=== PATIENT | female | born 1940 | race Caucasian/White ===

== ENCOUNTER 2018-09-22 07:31 | Outpatient (CLI) | payer MEDICARE ==
--- NOTE | 2018-09-22 09:20 | MRI ---
MRI LEFT KNEE WITHOUT CONTRAST: INDICATIONS: History of fall with left knee pain. COMPARISON: Prior MRI left knee with and without contrast dated 12/29/2015. FINDINGS: The low grade chondroid lesion involving the medial distal femur is stable in size, measuring 2.9 cm. 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 There is a new 8 mm intraarticular body within the suprapatellar pouch. There is post surgical change, most suspicious for a partial meniscectomy involving the posterior hor n and body of the medial meniscus. There is residual horizontally oriented high T2 signal involving the body and posterior junction of the medial meniscus, suspicious for either scar versus recurrent t ear. Some increased T2 signal is seen within the mid substance of the lateral meniscal body, which m ay reflect some intrameniscal degeneration versus scar from prior partial meniscectomy. A horizontal ly oriented signal abnormality is seen protruding from the body into the anterior horn, which may ref lect recurrent tear versus scar. There is mild osteoarthrosis of the left knee. The ACL, PCL, MCL, and LCLC are intact. The extensor mechanism is intact. IMPRESSION: 1. No acute fracture demonstrated. 2. Stable low grade chondroid lesion of the medial distal femur. 3. Mild osteoarthrosis of the left knee with an intraarticular body. 4. Findings suspicious for interval partial meniscectomy involving the medial and lateral meniscus. There is some truncation of the lower leaflet of the previously seen medial meniscal tear, involving the body and posterior horn. There is some residual horizontally oriented high T2 signal involving the body and posterior junction the medial meniscus, which may reflect residual tear versus scar. 5. Some increased T2 signal involving the substance of the lateral meniscal body may reflect scar ve rsus meniscal degeneration. There is horizontally oriented T2 signal intensity involving the anterio r body and anterior horn of the lateral meniscus, which may reflect recurrent tear versus scar. 6. Moderate sized Kinney's cyst. POS: [facility]
== END 2018-09-22 07:32 | disposition home or self-care (01) ==
LOC: TBSIIMAG 07:31
PROVIDERS: ATTEND Orthopaedic Surgery
DX: M25.562 Pain in left knee (principal); M23.92 Unspecified internal derangement of left knee; M25.862 Other specified joint disorders, left knee; M17.12 Unilateral primary osteoarthritis, left knee; M71.22 Synovial cyst of popliteal space [Baker], left knee

== ENCOUNTER 2018-10-13 00:37 | Outpatient (CLI) | payer MEDICARE ==
[2018-10-13 12:42] LABS: Anion Gap 12 mmol/L (10-20); BUN (Urea Nitrogen) 18 mg/dL (9.8-20.1); Calc. Creatinine Clearance 0 mL/min (70-130); Calcium 9.8 mg/dL (7.8-10.44); Carbon Dioxide 28 mmol/L (23-31); Chloride 104 mmol/L (98-107); Estimated GFR-MDRD 59; Glucose 88 mg/dL (83-110); Potassium 3.8 mmol/L (3.5-5.1); Sodium 140 mmol/L (136-145)
[2018-10-13 12:43] LABS: #Basophils 0.1 thou/uL (0.0-0.2); #Eosinphils 0.3 thou/uL (0.0-0.7); #Lymphocytes 1.9 thou/uL (1.20-3.40); #Monocytes 0.6 thou/uL (0.11-0.59); %Basophils 0.8 % (0.0-1.0); %Eosinophils 3.9 % (0.0-10.0); %Lymphocytes 27.5 % (21.0-51.0); %Monocytes 9.4 % (0.0-10.0); %Neutrophils 58.5 % (42.0-75.0); Hemoglobin 15.1 g/dL (12.0-16.0); Mean Corpuscular HGB CONC 33.6 g/dL (32.0-36.0); Mean Corpuscular Hemoglobin 29.9 pg (27.0-31.0); Mean Platelet Volume 8.3 fL (7.4-10.4); Platelet Count 222 thou/uL (130-400); RBC Distribution Width 12.4 % (11.5-14.5); Red Blood Cell (RBC) Count 5.06 mill/uL (4.20-5.40); White Blood Cell (WBC) Count 6.8 thou/uL (4.8-10.8)
--- NOTE | 2018-10-14 09:35 | EKG ---
Test Reason : Blood Pressure : / mmHG Vent. Rate : 064 BPM Atrial Rate : 064 BPM P-R Int : 160 ms QRS Dur : 086 ms QT Int : 436 ms P-R-T Axes : 069 065 064 degrees QTc Int : 449 ms Normal sinus rhythm Normal ECG When compared with ECG of 23-DEC-2016 13:04, Nonspecific T wave abnormality no longer evident in Inferior leads Confirmed by DR. Jay CARSON ([id number]) on 10/14/2018 9:34:23 AM Referred By: BONITA Confirmed By:DR. Jay CARSON
== END 2018-10-13 00:38 | disposition home or self-care (01) ==
LOC: LABBT 00:37
PROVIDERS: ATTEND Orthopaedic Surgery
DX: Z01.818 Encounter for other preprocedural examination (principal); M23.42 Loose body in knee, left knee
CPT/HCPCS: 80048; 85025; 93005; 93010

== ENCOUNTER 2018-10-15 05:58 | Day surgery (SDC) | payer MEDICARE ==
[2018-10-13 11:33] VITALS: BMI 27.0
[2018-10-15] MEDS ORDERED: PROPOFOL 20 ML ONE (06:48)
[2018-10-15] MEDS ORDERED: Ondansetron PF 4 MG/2 ML Vial ONE (10:07)
[2018-10-15] MEDS ORDERED: PROPOFOL 200 MG/20 ML VIAL ONE (10:07)
[2018-10-15] MEDS ORDERED: Dexamethasone 20 MG/5 ML VIAL ONE (10:07)
--- NOTE | 2018-10-15 10:34 | OP ---
DATE OF PROCEDURE: 10/15/2018 PREOPERATIVE DIAGNOSES: 1. Left knee medial and lateral meniscus tears. 2. Left knee loose bodies. POSTOPERATIVE DIAGNOSES: 1. Left knee medial and lateral meniscus tears. 2. Large cartilaginous loose bodies x2, both of these being greater than 1 cm. [employer]ANG[employer]SEM[employer]ER: None. BLOOD LOSS: Minimal. COMPLICATIONS: None. ANESTHESIA: The patient did have a general anesthetic as well as a local knee block. DISPOSITION: She went to recovery room in stable condition. INDICATIONS: This is a very active 78-year-old female, who despite nonoperative treatment, continues to have significant symptoms including pain, swelling, and catching. At this time, she opted to have surgery. DESCRIPTION OF PROCEDURE: After all verbal consent forms were explained and signed, she was taken to the operative room and at this time was given general anesthetic. Once the level of anesthesia was appropriate, tourniquet was placed on the left thigh and leg was placed in arthroscopic leg marie. It was then prepped and draped in standard surgical fashion. The limb was then exsanguinated and tourniquet was taken to 300 mmHg. Inferolateral portal was established. Scope was placed into the knee joint. Needle localization technique was then used to make a medial working portal. Diagnostic arthroscopy commenced in the notch. The ACL and PCL were found to be intact. There was a piece of the anterior horn of lateral meniscus, flopped into the notch. This was removed with a shaver. The medial compartment was evaluated. There was a tear in the posterior horn of the medial meniscus. There was some mild chondromalacic changes, nothing significant. A partial meniscectomy was performed using meniscal biter and shaver. Lateral compartment was entered. Again, there was some meniscal tears noted to the anterior horn and body of the lateral meniscus. A shaver was introduced into the compartment to start removing the small pieces of the meniscus that were bitten off with a biter. A large cartilaginous loose body was encountered underneath the meniscus. This was removed with the grasper. Again, this was grade 1 cm. We then swept through the lateral compartment some more once it was cleaned out. There was also noted an area of appearance in the central aspect of the lateral tibial plateau. The gutters were swept through. There was some synovitis in the lateral gutter. There was encountered another loose body greater than a centimeter. Again, the grasper was used to remove this. The patellofemoral joint overall was in good condition as far as the patella and the trochlea were concerned. Again, we went through the knee one more time looking for any remaining loose bodies. There were none, so the scope was removed. Knee was drained. Portals were closed with simple nylon stitch. Bulky sterile dressing was applied. Tourniquet was let down. Toes pinked up nicely. The patient was awakened, taken to recovery room in stable condition. All counts were correct at the end of the case and she did receive preoperative IV antibiotics. Job ID: [id number]
[2018-10-15] MEDS ORDERED: Bupivacaine HCl 0.5%/Epinephrine 1:200,000/PF 30 ml Vial ONE (10:55)
[2018-10-15] MEDS ORDERED: Lidocaine 2% w/Epinephrine 1:200K 20 ML VIAL ONE (10:55)
== END 2018-10-15 11:15 | disposition home or self-care (01) ==
LOC: SDC 05:58
PROVIDERS: ATTEND Orthopaedic Surgery
PROC: 0SBD4ZZ Excision of Left Knee Joint, Percutaneous Endoscopic Approach (ICD-10-PCS; principal; 2018-10-15)
PROC: 0SBD4ZZ Excision of Left Knee Joint, Percutaneous Endoscopic Approach (ICD-10-PCS; 2018-10-15)
PROC: 0SCD4ZZ Extirpation of Matter from Left Knee Joint, Percutaneous Endoscopic Approach (ICD-10-PCS; 2018-10-15)
DX: S83.242A Other tear of medial meniscus, current injury, left knee, initial encounter (principal); S83.282A Other tear of lateral meniscus, current injury, left knee, initial encounter; M17.12 Unilateral primary osteoarthritis, left knee; E78.5 Hyperlipidemia, unspecified; I10 Essential (primary) hypertension; K21.9 Gastro-esophageal reflux disease without esophagitis; Z79.82 Long term (current) use of aspirin; Z79.899 Other long term (current) drug therapy; Z88.0 Allergy status to penicillin
CPT/HCPCS: J0670; J1100; J2405; J2704

== ENCOUNTER 2022-11-16 17:02 | Inpatient (IN) | payer MEDICARE ==
[~2022-11-16 17:02] MED LIST: Iopamidol-370 76% 500 ML MDV (1 ML CHARGE) ONE
[2022-11-16] MEDS ORDERED: Ondansetron PF 4 MG/2 ML Vial ONE (17:03)
[2022-11-16] MEDS ORDERED: fentaNYL 50 mcg/mL 1 mL Vial ONE ×2 (17:04→19:01)
[2022-11-16] MEDS ORDERED: niCARdipine 25 MG/10 ML SDV ONE (17:05)
[2022-11-16] MEDS ORDERED: Rocuronium Bromide 10 MG/ML (10ML VIAL) ONE ×2 (17:05→20:30)
[2022-11-16] MEDS ORDERED: Labetalol HCl 100 MG/20 ML VIAL ONE (17:12)
[2022-11-16 17:24] LABS: #Basophils 0.1 thou/uL (0.0-0.2); #Eosinphils 0.4 thou/uL (0.0-0.7); #Lymphocytes 3.2 thou/uL (1.20-3.40); #Monocytes 0.9 thou/uL (0.11-0.59); #Neutrophils 4.4 thou/uL (1.40-6.50); %Basophils 0.6 % (0.0-1.0); %Eosinophils 4.8 % (0.0-10.0); %Lymphocytes 35.7 % (21.0-51.0); %Monocytes 10.1 % (0.0-10.0); %Neutrophils 48.8 % (42.0-75.0); Hemoglobin 14.5 g/dL (12.0-16.0); Mean Corpuscular HGB CONC 34.5 g/dL (32.0-36.0); Mean Corpuscular Hemoglobin 31.6 pg (27.0-31.0); Mean Corpuscular Volume 91.7 fl (78.0-98.0); Platelet Count 197 10x3/uL (130-400); RBC Distribution Width 12.7 % (11.5-14.5); Red Blood Cell (RBC) Count 4.58 mill/uL (4.20-5.40)
[2022-11-16 17:34] LABS: INR-International Normal Ratio 0.9; PTT 23.8 sec (22.9-36.1)
[2022-11-16 17:47] LABS: ALT (SGPT) 27 U/L (8-55); AST (SGOT) 38 U/L (5-34); Albumin 4.1 g/dL (3.4-4.8); Alkaline Phosphatase 30 U/L (40-110); Anion Gap 17 mmol/L (10-20); BUN (Urea Nitrogen) 25 mg/dL (9.8-20.1); Bilirubin, Total 0.3 mg/dL (0.2-1.2); Calc. Creatinine Clearance 0 mL/min (70-130); Carbon Dioxide 22 mmol/L (23-31); Chloride 104 mmol/L (98-107); Estimated GFR 50; Globulin 2.8 g/dL (2.4-3.5); Glucose 146 mg/dL (83-110); Potassium 3.6 mmol/L (3.5-5.1); Protein, Total 6.9 g/dL (5.8-8.1); Sodium 139 mmol/L (136-145)
[2022-11-16 17:54] LABS: Actual Bicarbonate (HCO3a) 25.7 mEq/L (22-28); Analyzer IN Cardio ER; Base Excess (BEa) 2.1 mEq/L (-2.0 to +3.0); CO2 Tension 37.2 mmHg (35.0-45.0); Calcium, Ionized (arterial) 1.19 mmol/L (1.12-1.30); Carboxyhemoglobin (COHb) 0.2 gm% (0.0-3.0); Hematocrit-ABG 43 % (36.0-47.0); Hemoglobin (Hb) 14.5 g/dL (12.0-16.0); O2 Tension (PaO2), arterial 478.9 mmHg (> 60.0); Potassium - ABG Lab 3.29 mmol/L (3.70-5.30); pH, Arterial 7.458 (7.35-7.45)
[2022-11-16 17:55] LABS: Puncture Site RRA
[2022-11-16] MEDS ORDERED: levETIRAcetam in NS 1,000 MG in Premix Bag 1 BAG IVPB ONE (18:03)
[2022-11-16] MEDS ORDERED: levETIRAcetam 500 MG/5 ML VIAL SLOW IVP SCH (18:15)
[2022-11-16 18:16] LABS: Bilirubin Negative (Negative); Blood, Urine Negative (Negative); Clarity Clear (Clear); Glucose, Urine (Dipstick) Normal (Negative); Ketone, Urine Negative (Negative); Leukocyte Negative Leu/uL (Negative); Nitrite Negative (Negative); Protein, Urine (Dipstick) Negative (Neg-Trace); Specific Gravity, Urine 1.019 (1.002-1.036); Urobilinogen Normal mg/dL (Less than 2); pH, Urine 6.5 (5.0-9.0)
[2022-11-16] MEDS ORDERED: Mag-Al 1200 mg/1200 mg/30 ML UDCUP PO PRN (18:24)
[2022-11-16] MEDS ORDERED: Ondansetron PF 4 MG/2 ML Vial IVP PRN (18:24)
[2022-11-16] MEDS ORDERED: Ventilator Sedation Protocol 1 EACH FS SCH (19:51)
[2022-11-16] MEDS ORDERED: Neomycin-Polymyxin 1 ML AMP ONE ×2 (19:53→21:43)
[2022-11-16] MEDS ORDERED: Thrombin 5000 UNITS/5 ML VIAL ONE (19:53)
[2022-11-16] MEDS ORDERED: EPINEPHrine 1 MG/ML AMP ONE (19:56)
[2022-11-16] MEDS ORDERED: Lidocaine 1% (PF) 30 ML VIAL ONE (19:56)
[2022-11-16] MEDS ORDERED: Fentanyl CADD 100 ML IV SCH (20:00)
[2022-11-16] MEDS ORDERED: Lorazepam 2 MG/ML VIAL SLOW IVP PRN (20:00)
[2022-11-16] MEDS ORDERED: DISCONTINUE PREVIOUS NARCOTIC PAIN MEDICATIONS AND BENZODIAZEPINES FS SCH (20:00)
[2022-11-16] MEDS ORDERED: Fentanyl BOLUS 250 ML IVPB PRN (20:00)
[2022-11-16] MEDS ORDERED: Propofol BOLUS 1,000 MG/100 ML VIAL IV PRN (20:00)
[2022-11-16] MEDS ORDERED: Midazolam HCl 2 mg/2 ml Vial ONE (20:10)
[2022-11-16] MEDS ORDERED: fentaNYL PF 100 MCG/2 ML SYRINGE ONE (20:10)
[2022-11-16] MEDS ORDERED: Clindamycin/D5W 900 MG in Premix Bag 1 BAG IVPB SCH ×2 (20:15→22:00)
[2022-11-16] MEDS ORDERED: Phenylephrine 10 MG/ML VIAL ONE (20:30)
[2022-11-16] MEDS ORDERED: PROPOFOL 200 MG/20 ML VIAL ONE (20:30)
[2022-11-16] MEDS ORDERED: ePHEDrine Sulfate 50 MG/10 ML VIAL ONE (20:30)
[2022-11-16] MEDS ORDERED: Famotidine/PF 20 mg/2ml Vial SLOW IVP SCH (21:00)
[2022-11-16] MEDS ORDERED: levETIRAcetam in NS 500 MG in Premix Bag 1 BAG IVPB SCH (21:00)
[2022-11-16 23:22] LABS: Actual Bicarbonate (HCO3a) 22.2 mEq/L (22-28); Base Excess (BEa) 1.1 mEq/L (-2.0 to +3.0); Calcium, Ionized (arterial) 1.06 mmol/L (1.12-1.30); Carboxyhemoglobin (COHb) 0.3 gm% (0.0-3.0); Hematocrit-ABG 39 % (36.0-47.0); Hemoglobin (Hb) 13.3 g/dL (12.0-16.0); O2 Tension (PaO2), arterial 101.6 mmHg (> 60.0); Potassium - ABG Lab 3.51 mmol/L (3.70-5.30); pH, Arterial 7.549 (7.35-7.45)
[2022-11-16 23:23] LABS: Puncture Site ART LINE
[2022-11-16] MEDS ORDERED: Electrolyte Replacement Protocol 1 EACH FS SCH (23:45)
[2022-11-16] MEDS ORDERED: Ipratropium/Albuterol 3 ML NEB NEB PRN (23:46)
[2022-11-16 23:54] LABS: Troponin I 0.063 ng/mL (< 0.028)
[2022-11-16] MEDS: Sodium Chloride 0.9% 1,000 ML IV SCH (23:57)
[2022-11-17] MEDS: levETIRAcetam 500 MG/5 ML VIAL SLOW IVP SCH ×3 (00:20→20:22)
[2022-11-17] MEDS ORDERED: Fentanyl CADD 100 ML ONE (01:29)
[2022-11-17 02:04] LABS: Troponin I 0.054 ng/mL (< 0.028)
[2022-11-17] MEDS: niCARdipine 25 MG in Sodium Chloride 0.9% 250 ML 250 ML IVPB SCH ×5 (02:08→11:47)
[2022-11-17 04:20] LABS: #Lymphocytes 1.3 thou/uL (1.20-3.40); #Monocytes 1.1 thou/uL (0.11-0.59); #Neutrophils 12.3 thou/uL (1.40-6.50); %Basophils 0.2 % (0.0-1.0); %Eosinophils 0.2 % (0.0-10.0); %Lymphocytes 8.8 % (21.0-51.0); %Monocytes 7.2 % (0.0-10.0); %Neutrophils 83.6 % (42.0-75.0); Hemoglobin 12.6 g/dL (12.0-16.0); Mean Corpuscular Hemoglobin 31.7 pg (27.0-31.0); Mean Corpuscular Volume 90.6 fl (78.0-98.0); Mean Platelet Volume 7.8 fL (7.4-10.4); Platelet Count 189 10x3/uL (130-400); RBC Distribution Width 12.6 % (11.5-14.5); Red Blood Cell (RBC) Count 3.96 mill/uL (4.20-5.40); White Blood Cell (WBC) Count 14.7 10x3/uL (4.8-10.8)
[2022-11-17 04:44] LABS: ALT (SGPT) 25 U/L (8-55); AST (SGOT) 32 U/L (5-34); Albumin 3.5 g/dL (3.4-4.8); Alkaline Phosphatase 25 U/L (40-110); Anion Gap 13 mmol/L (10-20); BUN (Urea Nitrogen) 16 mg/dL (9.8-20.1); Bilirubin, Total 0.5 mg/dL (0.2-1.2); Calc. Creatinine Clearance 56 mL/min (70-130); Calcium 8.6 mg/dL (7.8-10.44); Carbon Dioxide 20 mmol/L (23-31); Cardiac Risk 4.7 (Less than 4.5); Chloride 110 mmol/L (98-107); Cholesterol 169 mg/dl (< 200 Desired); Estimated GFR 66; Globulin 2.2 g/dL (2.4-3.5); Glucose 157 mg/dL (83-110); HDL Cholesterol 36 mg/dL (>60 Neg Risk); LDL Cholesterol, Calculated 109 mg/dL; Potassium 3.6 mmol/L (3.5-5.1); Protein, Total 5.7 g/dL (5.8-8.1); Sodium 139 mmol/L (136-145); Triglycerides 118 mg/dL (Less than 150)
[2022-11-17] MEDS: CEFAZOLIN 2 GM in Sodium Chloride 0.9% 100 ML IVPB SCH ×2 (04:51→14:01)
[2022-11-17 08:00] LABS: Actual Bicarbonate (HCO3a) 21.2 mEq/L (22-28); Base Excess (BEa) -1.2 mEq/L (-2.0 to +3.0); Calcium, Ionized (arterial) 1.07 mmol/L (1.12-1.30); Carboxyhemoglobin (COHb) 0.4 gm% (0.0-3.0); Hematocrit-ABG 38 % (36.0-47.0); Hemoglobin (Hb) 12.9 g/dL (12.0-16.0); Potassium - ABG Lab 3.54 mmol/L (3.70-5.30); pH, Arterial 7.481 (7.35-7.45)
[2022-11-17 08:02] LABS: Puncture Site Arterial Line
[2022-11-17] MEDS: Famotidine/PF 20 mg/2ml Vial SLOW IVP SCH (09:30)
[2022-11-17] MEDS: Propofol 1,000 MG/100 ML VIAL IV PRN (11:47)
[2022-11-17] MEDS ORDERED: niCARdipine 40MG In NaCl 40 MG/200 ML BAG IVPB SCH (13:30)
[2022-11-17] MEDS: niCARdipine 50 MG in Sodium Chloride 0.9% 250 ML 230 ML IV SCH ×2 (13:55→21:08)
[2022-11-17] MEDS: Sodium Chloride 0.9% 1,000 ML IV SCH (19:57)
[2022-11-18] MEDS: niCARdipine 50 MG in Sodium Chloride 0.9% 250 ML 230 ML IV SCH ×3 (01:12→14:15)
[2022-11-18 04:34] LABS: #Eosinphils 0.1 thou/uL (0.0-0.7); #Lymphocytes 1.6 thou/uL (1.20-3.40); #Monocytes 1.5 thou/uL (0.11-0.59); #Neutrophils 9.9 thou/uL (1.40-6.50); %Basophils 0.3 % (0.0-1.0); %Eosinophils 0.6 % (0.0-10.0); %Lymphocytes 12.4 % (21.0-51.0); %Monocytes 11.3 % (0.0-10.0); %Neutrophils 75.4 % (42.0-75.0); Hemoglobin 11.6 g/dL (12.0-16.0); Mean Corpuscular HGB CONC 34.8 g/dL (32.0-36.0); Mean Corpuscular Hemoglobin 31.2 pg (27.0-31.0); Mean Corpuscular Volume 89.7 fl (78.0-98.0); Mean Platelet Volume 7.9 fL (7.4-10.4); Platelet Count 169 10x3/uL (130-400); RBC Distribution Width 12.9 % (11.5-14.5); Red Blood Cell (RBC) Count 3.71 mill/uL (4.20-5.40); White Blood Cell (WBC) Count 13.2 10x3/uL (4.8-10.8)
[2022-11-18 04:55] LABS: Anion Gap 10 mmol/L (10-20); BUN (Urea Nitrogen) 12 mg/dL (9.8-20.1); Calc. Creatinine Clearance 64 mL/min (70-130); Calcium 8.1 mg/dL (7.8-10.44); Carbon Dioxide 19 mmol/L (23-31); Chloride 116 mmol/L (98-107); Estimated GFR 78; Glucose 141 mg/dL (83-110); Potassium 3.3 mmol/L (3.5-5.1); Sodium 142 mmol/L (136-145)
[2022-11-18] MEDS: Potassium Chloride 20 MEQ in Premix Bag 1 BAG IVPB SCH ×2 (07:40→09:35)
[2022-11-18] MEDS: levETIRAcetam 500 MG/5 ML VIAL SLOW IVP SCH ×2 (08:10→20:32)
[2022-11-18] MEDS: Famotidine/PF 20 mg/2ml Vial SLOW IVP SCH (08:10)
[2022-11-18] MEDS: Sodium Chloride 0.9% 1,000 ML IV SCH ×2 (08:12→20:32)
[2022-11-18] MEDS ORDERED: Furosemide 40 MG/4 ML VIAL SLOW IVP SCH (11:15)
[2022-11-18] MEDS: Propofol 1,000 MG/100 ML VIAL IV PRN (11:17)
[2022-11-19] MEDS: niCARdipine 50 MG in Sodium Chloride 0.9% 250 ML 230 ML IV SCH ×5 (00:56→20:58)
[2022-11-19 04:22] LABS: #Eosinphils 0.1 thou/uL (0.0-0.7); #Lymphocytes 1.4 thou/uL (1.20-3.40); #Monocytes 1.4 thou/uL (0.11-0.59); #Neutrophils 11.7 thou/uL (1.40-6.50); %Basophils 0.2 % (0.0-1.0); %Eosinophils 0.6 % (0.0-10.0); %Lymphocytes 9.8 % (21.0-51.0); %Monocytes 9.6 % (0.0-10.0); %Neutrophils 79.8 % (42.0-75.0); Hemoglobin 11.5 g/dL (12.0-16.0); Mean Corpuscular Volume 91.2 fl (78.0-98.0); Mean Platelet Volume 8.5 fL (7.4-10.4); Platelet Count 171 10x3/uL (130-400); RBC Distribution Width 12.9 % (11.5-14.5); Red Blood Cell (RBC) Count 3.72 mill/uL (4.20-5.40); White Blood Cell (WBC) Count 14.6 10x3/uL (4.8-10.8)
[2022-11-19 04:39] LABS: Anion Gap 12 mmol/L (10-20); BUN (Urea Nitrogen) 13 mg/dL (9.8-20.1); Calc. Creatinine Clearance 66 mL/min (70-130); Calcium 8.7 mg/dL (7.8-10.44); Carbon Dioxide 20 mmol/L (23-31); Chloride 117 mmol/L (98-107); Estimated GFR 79; Glucose 134 mg/dL (83-110); Potassium 3.6 mmol/L (3.5-5.1); Sodium 145 mmol/L (136-145)
[2022-11-19] MEDS: levETIRAcetam 500 MG/5 ML VIAL SLOW IVP SCH ×2 (08:38→21:04)
[2022-11-19] MEDS: Famotidine/PF 20 mg/2ml Vial SLOW IVP SCH ×2 (08:38→21:05)
[2022-11-19] MEDS ORDERED: Furosemide 40 MG/4 ML VIAL SLOW IVP SCH (09:00)
[2022-11-19 11:26] LABS: Bilirubin Negative (Negative); Blood, Urine Trace (Negative); CAUTI Indications for Culture Alt mental st,lethar; Clarity Clear (Clear); Glucose, Urine (Dipstick) Normal (Negative); Ketone, Urine 10 mg/dL (Negative); Leukocyte 25 Leu/uL (Negative); Nitrite Negative (Negative); Protein, Urine (Dipstick) 20 mg/dL (Neg-Trace); Specific Gravity, Urine 1.018 (1.002-1.036); Squamous Epithelial 0-3 HPF (0-3); Urobilinogen Normal mg/dL (Less than 2)
[2022-11-19 11:27] LABS: Bacteria/HPF 1+ HPF (None Seen)
[2022-11-19 11:28] LABS: Urine Culture Reflex No No
[2022-11-19] MEDS: Sodium Chloride 0.9% 1,000 ML IV SCH (12:06)
[2022-11-19] MEDS: hydrALAZINE 20 MG/ML VIAL SLOW IVP PRN (14:06)
[2022-11-20] MEDS: Sodium Chloride 0.9% 1,000 ML IV SCH ×2 (00:24→08:33)
[2022-11-20] MEDS: niCARdipine 50 MG in Sodium Chloride 0.9% 250 ML 230 ML IV SCH ×6 (00:33→21:21)
[2022-11-20] MEDS: levETIRAcetam 500 MG/5 ML VIAL SLOW IVP SCH ×2 (08:32→21:05)
[2022-11-20] MEDS: Famotidine/PF 20 mg/2ml Vial SLOW IVP SCH ×2 (08:33→21:55)
[2022-11-20] MEDS ORDERED: Amlodipine 5 MG TAB PO SCH (15:15)
[2022-11-20] MEDS: Morphine 2 MG/ML VIAL SLOW IVP PRN ×3 (15:26→23:38)
[2022-11-20] MEDS: Acetaminophen 650 MG/20.3 ML UDCUP PO PRN (17:49)
[2022-11-20] MEDS: cefTRIAXone\\ROCEPHIN 2 GM in Sodium Chloride 0.9% 100 ML IVPB SCH (20:55)
[2022-11-20] MEDS ORDERED: Famotidine 20 MG TAB PER TUBE SCH (21:00)
[2022-11-20] MEDS: hydrALAZINE 20 MG/ML VIAL SLOW IVP PRN ×3 (21:05→23:39)
[2022-11-21] MEDS: niCARdipine 50 MG in Sodium Chloride 0.9% 250 ML 230 ML IV SCH ×5 (00:30→18:15)
[2022-11-21] MEDS: Acetaminophen 650 MG/20.3 ML UDCUP PO PRN (00:34)
[2022-11-21] MEDS: Morphine 2 MG/ML VIAL SLOW IVP PRN ×5 (01:50→22:23)
[2022-11-21] MEDS: Sodium Chloride 0.9% 1,000 ML IV SCH ×2 (04:20→15:03)
[2022-11-21] MEDS: hydrALAZINE 20 MG/ML VIAL SLOW IVP PRN ×2 (04:44→08:01)
[2022-11-21 05:08] LABS: #Eosinphils 0.2 thou/uL (0.0-0.7); #Lymphocytes 1.2 thou/uL (1.20-3.40); #Monocytes 1.4 thou/uL (0.11-0.59); #Neutrophils 9.7 thou/uL (1.40-6.50); %Basophils 0.3 % (0.0-1.0); %Eosinophils 1.5 % (0.0-10.0); %Lymphocytes 9.3 % (21.0-51.0); %Monocytes 11.4 % (0.0-10.0); %Neutrophils 77.5 % (42.0-75.0); Hemoglobin 10.4 g/dL (12.0-16.0); Mean Corpuscular HGB CONC 35.2 g/dL (32.0-36.0); Mean Corpuscular Hemoglobin 31.6 pg (27.0-31.0); Mean Corpuscular Volume 89.9 fl (78.0-98.0); Mean Platelet Volume 7.9 fL (7.4-10.4); Platelet Count 191 10x3/uL (130-400); RBC Distribution Width 12.6 % (11.5-14.5); White Blood Cell (WBC) Count 12.5 10x3/uL (4.8-10.8)
[2022-11-21] MEDS: Famotidine/PF 20 mg/2ml Vial SLOW IVP SCH ×2 (08:17→22:14)
[2022-11-21] MEDS: levETIRAcetam 500 MG/5 ML VIAL SLOW IVP SCH ×2 (08:18→22:13)
[2022-11-21] MEDS ORDERED: Amlodipine 5 MG TAB PO SCH ×2 (09:00→12:30)
[2022-11-21] MEDS ORDERED: Furosemide 40 MG/4 ML VIAL SLOW IVP SCH (14:15)
[2022-11-21] MEDS: cefTRIAXone\\ROCEPHIN 2 GM in Sodium Chloride 0.9% 100 ML IVPB SCH (22:13)
[2022-11-22] MEDS: Morphine 2 MG/ML VIAL SLOW IVP PRN (04:31)
[2022-11-22] MEDS: hydrALAZINE 20 MG/ML VIAL SLOW IVP PRN ×4 (04:32→21:36)
[2022-11-22 05:03] LABS: #Eosinphils 0.2 thou/uL (0.0-0.7); #Lymphocytes 1.4 thou/uL (1.20-3.40); #Monocytes 0.9 thou/uL (0.11-0.59); #Neutrophils 7.5 thou/uL (1.40-6.50); %Basophils 0.3 % (0.0-1.0); %Eosinophils 2.3 % (0.0-10.0); %Lymphocytes 13.8 % (21.0-51.0); %Monocytes 9.3 % (0.0-10.0); %Neutrophils 74.3 % (42.0-75.0); Hemoglobin 9.8 g/dL (12.0-16.0); Mean Corpuscular HGB CONC 33.9 g/dL (32.0-36.0); Mean Corpuscular Volume 91.5 fl (78.0-98.0); Mean Platelet Volume 8.7 fL (7.4-10.4); Platelet Count 196 10x3/uL (130-400); RBC Distribution Width 12.8 % (11.5-14.5); Red Blood Cell (RBC) Count 3.17 mill/uL (4.20-5.40); White Blood Cell (WBC) Count 10.1 10x3/uL (4.8-10.8)
[2022-11-22 05:25] LABS: Anion Gap 13 mmol/L (10-20); BUN (Urea Nitrogen) 19 mg/dL (9.8-20.1); Calc. Creatinine Clearance 78 mL/min (70-130); Calcium 8.3 mg/dL (7.8-10.44); Carbon Dioxide 18 mmol/L (23-31); Chloride 122 mmol/L (98-107); Estimated GFR 86; Glucose 131 mg/dL (83-110); Sodium 150 mmol/L (136-145)
[2022-11-22] MEDS: Potassium Chloride 20 MEQ in Premix Bag 1 BAG IVPB SCH ×2 (06:38→09:06)
[2022-11-22] MEDS: Sodium Chloride 0.9% 1,000 ML IV SCH (06:38)
[2022-11-22 06:39] LABS: Magnesium 1.9 mg/dL (1.6-2.6)
[2022-11-22] MEDS ORDERED: Magnesium 2 GM/50 ML(in water) 2 GM in Premix Bag 1 BAG IVPB SCH (08:00)
[2022-11-22] MEDS: Amlodipine 10 MG TAB PO SCH (09:06)
[2022-11-22] MEDS: Famotidine/PF 20 mg/2ml Vial SLOW IVP SCH ×2 (09:07→21:03)
[2022-11-22] MEDS: niCARdipine 50 MG in Sodium Chloride 0.9% 250 ML 230 ML IV SCH ×4 (09:07→21:00)
[2022-11-22] MEDS: levETIRAcetam 500 MG/5 ML VIAL SLOW IVP SCH ×2 (09:07→21:03)
[2022-11-22] MEDS ORDERED: Bisacodyl 10 MG SUPP PR PRN (13:01)
[2022-11-22] MEDS: Metoprolol Tartrate 50 MG TAB PO SCH ×4 (13:15→23:02)
[2022-11-22] MEDS: cefTRIAXone\\ROCEPHIN 2 GM in Sodium Chloride 0.9% 100 ML IVPB SCH (21:08)
[2022-11-23] MEDS: hydrALAZINE 20 MG/ML VIAL SLOW IVP PRN ×3 (02:53→14:34)
[2022-11-23] MEDS: niCARdipine 50 MG in Sodium Chloride 0.9% 250 ML 230 ML IV SCH (04:37)
[2022-11-23] MEDS: Furosemide 100 MG/10 ML VIAL SLOW IVP SCH (05:58)
[2022-11-23] MEDS: Famotidine/PF 20 mg/2ml Vial SLOW IVP SCH ×2 (08:19→20:55)
[2022-11-23] MEDS: Amlodipine 10 MG TAB PO SCH (08:19)
[2022-11-23] MEDS: levETIRAcetam 500 MG/5 ML VIAL SLOW IVP SCH ×2 (08:20→20:55)
[2022-11-23] MEDS: niCARdipine 50 MG, Admixture Fee 1 EACH in Sodium Chloride 0.9% 250 ML 230 ML IV SCH ×2 (08:53→14:45)
[2022-11-23] MEDS: Metoprolol Tartrate 50 MG TAB PO SCH (09:02)
[2022-11-23 09:15] LABS: Calcium 8.2 mg/dL (7.8-10.44); Chloride 122 mmol/L (98-107); Glucose 149 mg/dL (83-110); Potassium 2.8 mmol/L (3.5-5.1); Sodium 149 mmol/L (136-145)
[2022-11-23 09:17] LABS: Anion Gap 11 mmol/L (10-20); Carbon Dioxide 19 mmol/L (23-31)
[2022-11-23 09:19] LABS: Calc. Creatinine Clearance 76 mL/min (70-130); Estimated GFR 81
[2022-11-23] MEDS: Lisinopril 20 MG TAB PO SCH (09:19)
[2022-11-23 09:20] LABS: BUN (Urea Nitrogen) 18 mg/dL (9.8-20.1)
[2022-11-23 09:21] LABS: Magnesium 2.2 mg/dL (1.6-2.6)
[2022-11-23] MEDS: Potassium Chloride 20 MEQ in Premix Bag 1 BAG IVPB SCH ×4 (09:53→15:48)
[2022-11-23] MEDS: Labetalol HCl 100 MG/20 ML VIAL SLOW IVP PRN ×2 (14:45→17:06)
[2022-11-23] MEDS ORDERED: Racepinephrine 2.25% 0.5 ML NEB ONE (15:35)
[2022-11-23] MEDS: Dexamethasone 4 mg/ml Vial ONE ×2 (15:46→16:01)
[2022-11-23] MEDS ORDERED: Racepinephrine 2.25% 0.5 ML NEB NEB SCH (16:00)
[2022-11-23] MEDS ORDERED: Dexamethasone 10 MG/ML VIAL SLOW IVP SCH (16:00)
[2022-11-23 19:52] LABS: Anion Gap 15 mmol/L (10-20); BUN (Urea Nitrogen) 19 mg/dL (9.8-20.1); Calc. Creatinine Clearance 78 mL/min (70-130); Calcium 8.5 mg/dL (7.8-10.44); Carbon Dioxide 15 mmol/L (23-31); Chloride 121 mmol/L (98-107); Estimated GFR 83; Glucose 166 mg/dL (83-110); Potassium 4.5 mmol/L (3.5-5.1); Sodium 146 mmol/L (136-145)
[2022-11-23] MEDS: cefTRIAXone\\ROCEPHIN 2 GM in Sodium Chloride 0.9% 100 ML IVPB SCH (20:55)
[2022-11-23] MEDS: Racepinephrine 2.25% 0.5 ML NEB NEB SCH (22:13)
[2022-11-24 04:11] LABS: Anion Gap 14 mmol/L (10-20); BUN (Urea Nitrogen) 18 mg/dL (9.8-20.1); Calc. Creatinine Clearance 84 mL/min (70-130); Calcium 8.2 mg/dL (7.8-10.44); Carbon Dioxide 14 mmol/L (23-31); Chloride 124 mmol/L (98-107); Estimated GFR 87; Glucose 168 mg/dL (83-110); Potassium 4.3 mmol/L (3.5-5.1); Sodium 148 mmol/L (136-145)
[2022-11-24] MEDS: Furosemide 100 MG/10 ML VIAL SLOW IVP SCH (05:12)
[2022-11-24] MEDS: niCARdipine 50 MG, Admixture Fee 1 EACH in Sodium Chloride 0.9% 250 ML 230 ML IV SCH ×5 (05:19→23:50)
[2022-11-24] MEDS: hydrALAZINE 20 MG/ML VIAL SLOW IVP PRN (06:12)
[2022-11-24] MEDS: Racepinephrine 2.25% 0.5 ML NEB NEB SCH (07:12)
[2022-11-24] MEDS: levETIRAcetam 500 MG/5 ML VIAL SLOW IVP SCH ×2 (09:23→20:38)
[2022-11-24] MEDS: Famotidine/PF 20 mg/2ml Vial SLOW IVP SCH ×2 (09:24→20:38)
[2022-11-24] MEDS: Amlodipine 10 MG TAB PO SCH (09:24)
[2022-11-24] MEDS: Dextrose 5 %-0.45 % NaCl 1,000 ML IV SCH ×2 (09:24→22:09)
[2022-11-24] MEDS: Lisinopril 20 MG TAB PO SCH ×2 (09:24→20:39)
[2022-11-24] MEDS ORDERED: hydrALAZINE 25 MG TAB PO SCH (11:30)
[2022-11-24] MEDS: Labetalol HCl 100 MG/20 ML VIAL SLOW IVP PRN ×2 (12:19→17:33)
[2022-11-24] MEDS: hydrALAZINE 25 MG TAB PO SCH ×2 (14:51→20:39)
[2022-11-24 16:31] LABS: Anion Gap 15 mmol/L (10-20); BUN (Urea Nitrogen) 19 mg/dL (9.8-20.1); Calc. Creatinine Clearance 75 mL/min (70-130); Calcium 8.6 mg/dL (7.8-10.44); Carbon Dioxide 20 mmol/L (23-31); Chloride 115 mmol/L (98-107); Estimated GFR 81; Glucose 204 mg/dL (83-110); Potassium 3.1 mmol/L (3.5-5.1); Sodium 147 mmol/L (136-145)
[2022-11-24] MEDS: cefTRIAXone\\ROCEPHIN 2 GM in Sodium Chloride 0.9% 100 ML IVPB SCH (20:37)
[2022-11-25] MEDS: Potassium Chloride 20 MEQ in Premix Bag 1 BAG IVPB SCH ×2 (01:30→03:04)
[2022-11-25] MEDS: Labetalol HCl 100 MG/20 ML VIAL SLOW IVP PRN ×3 (02:19→22:38)
[2022-11-25] MEDS: niCARdipine 50 MG, Admixture Fee 1 EACH in Sodium Chloride 0.9% 250 ML 230 ML IV SCH ×2 (05:19→10:25)
[2022-11-25 06:14] LABS: Anion Gap 9 mmol/L (10-20); BUN (Urea Nitrogen) 17 mg/dL (9.8-20.1); Calc. Creatinine Clearance 91 mL/min (70-130); Calcium 6.2 mg/dL (7.8-10.44); Carbon Dioxide 20 mmol/L (23-31); Chloride 123 mmol/L (98-107); Estimated GFR 89; Glucose 193 mg/dL (83-110); Potassium 3.5 mmol/L (3.5-5.1); Sodium 148 mmol/L (136-145)
[2022-11-25] MEDS ORDERED: Calcium Gluc 4.6 MEQ/10 ML (100 MG/ML) SLOW IVP SCH (08:11)
[2022-11-25] MEDS: levETIRAcetam 500 MG/5 ML VIAL SLOW IVP SCH ×2 (08:35→20:08)
[2022-11-25] MEDS: Lisinopril 20 MG TAB PO SCH ×2 (08:36→20:08)
[2022-11-25] MEDS: Famotidine/PF 20 mg/2ml Vial SLOW IVP SCH ×2 (08:36→20:08)
[2022-11-25] MEDS: Amlodipine 10 MG TAB PO SCH (08:36)
[2022-11-25] MEDS: hydrALAZINE 25 MG TAB PO SCH ×3 (08:36→20:07)
[2022-11-25] MEDS ORDERED: Polyvinyl Alcohol 1.4%/Povidone 0.6% Opth Drops EA EYE PRN (10:13)
[2022-11-25 10:24] LABS: ALT (SGPT) 71 U/L (8-55); AST (SGOT) 52 U/L (5-34); Albumin 2.9 g/dL (3.4-4.8); Alkaline Phosphatase 33 U/L (40-110); Bilirubin, Direct 0.3 mg/dL (0.1-0.3); Bilirubin, Total 0.6 mg/dL (0.2-1.2); Protein, Total 5.8 g/dL (5.8-8.1)
[2022-11-25] MEDS: Dextrose 5% w/ 20 mEq KCl 1,000 ML IV SCH (12:04)
[2022-11-25] MEDS: cefTRIAXone\\ROCEPHIN 2 GM in Sodium Chloride 0.9% 100 ML IVPB SCH (20:08)
[2022-11-26] MEDS: Dextrose 5% w/ 20 mEq KCl 1,000 ML IV SCH ×2 (00:56→14:40)
[2022-11-26] MEDS: hydrALAZINE 20 MG/ML VIAL SLOW IVP PRN ×2 (04:12→09:05)
[2022-11-26 04:29] LABS: Anion Gap 15 mmol/L (10-20); BUN (Urea Nitrogen) 13 mg/dL (9.8-20.1); Calc. Creatinine Clearance 83 mL/min (70-130); Calcium 8.8 mg/dL (7.8-10.44); Carbon Dioxide 21 mmol/L (23-31); Chloride 111 mmol/L (98-107); Estimated GFR 87; Glucose 142 mg/dL (83-110); Potassium 3.5 mmol/L (3.5-5.1); Sodium 143 mmol/L (136-145)
[2022-11-26] MEDS: Potassium Chloride 20 MEQ in Premix Bag 1 BAG IVPB SCH ×2 (08:35→13:14)
[2022-11-26] MEDS: Amlodipine 10 MG TAB PO SCH (08:35)
[2022-11-26] MEDS: levETIRAcetam 500 MG/5 ML VIAL SLOW IVP SCH ×2 (08:35→21:12)
[2022-11-26] MEDS: hydrALAZINE 25 MG TAB PO SCH ×3 (08:36→21:12)
[2022-11-26] MEDS: Famotidine/PF 20 mg/2ml Vial SLOW IVP SCH (08:36)
[2022-11-26] MEDS: Lisinopril 20 MG TAB PO SCH ×2 (08:36→21:12)
[2022-11-26] MEDS: Labetalol HCl 100 MG/20 ML VIAL SLOW IVP PRN (13:47)
[2022-11-26] MEDS: cefTRIAXone\\ROCEPHIN 2 GM in Sodium Chloride 0.9% 100 ML IVPB SCH (21:11)
[2022-11-26] MEDS: Famotidine 20 MG TAB PO SCH (21:12)
[2022-11-27 03:59] LABS: Anion Gap 14 mmol/L (10-20); BUN (Urea Nitrogen) 13 mg/dL (9.8-20.1); Calc. Creatinine Clearance 81 mL/min (70-130); Calcium 8.5 mg/dL (7.8-10.44); Carbon Dioxide 23 mmol/L (23-31); Chloride 108 mmol/L (98-107); Estimated GFR 86; Glucose 109 mg/dL (83-110); Potassium 3.9 mmol/L (3.5-5.1); Sodium 141 mmol/L (136-145)
[2022-11-27] MEDS: Dextrose 5% w/ 20 mEq KCl 1,000 ML IV SCH (04:18)
[2022-11-27] MEDS: Labetalol HCl 100 MG/20 ML VIAL SLOW IVP PRN (05:21)
[2022-11-27] MEDS: hydrALAZINE 25 MG TAB PO SCH ×3 (09:15→21:22)
[2022-11-27] MEDS: Amlodipine 10 MG TAB PO SCH (09:15)
[2022-11-27] MEDS: Lisinopril 20 MG TAB PO SCH ×2 (09:15→21:21)
[2022-11-27] MEDS: Famotidine 20 MG TAB PO SCH ×2 (09:15→21:22)
[2022-11-27] MEDS: levETIRAcetam 500 MG/5 ML VIAL SLOW IVP SCH ×2 (09:16→21:23)
[2022-11-28] MEDS: Labetalol HCl 100 MG/20 ML VIAL SLOW IVP PRN (03:24)
[2022-11-28 04:23] LABS: Anion Gap 15 mmol/L (10-20); BUN (Urea Nitrogen) 11 mg/dL (9.8-20.1); Calc. Creatinine Clearance 81 mL/min (70-130); Calcium 8.8 mg/dL (7.8-10.44); Carbon Dioxide 24 mmol/L (23-31); Chloride 105 mmol/L (98-107); Estimated GFR 87; Glucose 105 mg/dL (83-110); Sodium 140 mmol/L (136-145)
[2022-11-28] MEDS: Amlodipine 10 MG TAB PO SCH (09:48)
[2022-11-28] MEDS: hydrALAZINE 25 MG TAB PO SCH ×3 (09:48→20:52)
[2022-11-28] MEDS: levETIRAcetam 500 MG/5 ML VIAL SLOW IVP SCH ×2 (09:49→20:53)
[2022-11-28] MEDS: Famotidine 20 MG TAB PO SCH ×2 (09:49→20:53)
[2022-11-28] MEDS: Lisinopril 20 MG TAB PO SCH ×2 (09:49→20:53)
[2022-11-29 04:38] LABS: Anion Gap 13 mmol/L (10-20); BUN (Urea Nitrogen) 15 mg/dL (9.8-20.1); Calc. Creatinine Clearance 68 mL/min (70-130); Calcium 8.6 mg/dL (7.8-10.44); Carbon Dioxide 27 mmol/L (23-31); Chloride 104 mmol/L (98-107); Estimated GFR 79; Glucose 105 mg/dL (83-110); Potassium 3.7 mmol/L (3.5-5.1); Sodium 140 mmol/L (136-145)
[2022-11-29] MEDS: Amlodipine 10 MG TAB PO SCH (09:15)
[2022-11-29] MEDS: Famotidine 20 MG TAB PO SCH ×2 (09:15→21:08)
[2022-11-29] MEDS: Lisinopril 20 MG TAB PO SCH ×2 (09:15→21:08)
[2022-11-29] MEDS: hydrALAZINE 25 MG TAB PO SCH ×3 (09:16→21:07)
[2022-11-29] MEDS: levETIRAcetam 500 MG/5 ML VIAL SLOW IVP SCH ×2 (09:17→21:12)
[2022-11-29 19:42] VITALS: BMI 29.7
[2022-11-29] MEDS: Acetaminophen 650 MG/20.3 ML UDCUP PO PRN (21:40)
[2022-11-30] MEDS: levETIRAcetam 500 MG/5 ML VIAL SLOW IVP SCH (08:36)
[2022-11-30] MEDS: Lisinopril 20 MG TAB PO SCH (08:39)
[2022-11-30] MEDS: Famotidine 20 MG TAB PO SCH (08:39)
[2022-11-30] MEDS: Amlodipine 10 MG TAB PO SCH (08:39)
[2022-11-30] MEDS: hydrALAZINE 25 MG TAB PO SCH ×2 (08:40→14:53)
[2022-11-30 12:22] VITALS: TEMP 97.7
[2022-11-30 12:50] LABS: Bacteria/HPF None Seen HPF (None Seen); Bilirubin Negative (Negative); Blood, Urine Negative (Negative); CAUTI Indications for Culture Dysuria,urgency,freq; Clarity Clear (Clear); Glucose, Urine (Dipstick) Normal (Negative); Ketone, Urine Negative (Negative); Leukocyte Negative Leu/uL (Negative); Nitrite Negative (Negative); Protein, Urine (Dipstick) Negative (Neg-Trace); RBC/HPF None Seen HPF (0-3); Specific Gravity, Urine 1.006 (1.002-1.036); Squamous Epithelial 0-3 HPF (0-3); Urobilinogen Normal mg/dL (Less than 2); WBC/HPF None Seen HPF (0-3); pH, Urine 6.5 (5.0-9.0)
[2022-11-30 12:53] LABS: Urine Culture Reflex No No
[2022-11-30 14:57] VITALS: BP 125/58
== END 2022-11-30 15:59 | disposition swing bed (61) | DRG 25 ==
LOC: ERS 17:02 → CCU 18:24 → NEURO 11-29 19:24
PROVIDERS: ADMIT Hospitalist; ATTEND Hospitalist
PROC: 00C40ZZ Extirpation of Matter from Intracranial Subdural Space, Open Approach (ICD-10-PCS; principal; 2022-11-16)
PROC: 5A1955Z Respiratory Ventilation, Greater than 96 Consecutive Hours (ICD-10-PCS; 2022-11-16)
PROC: 4A133R1 Monitoring of Arterial Saturation, Peripheral, Percutaneous Approach (ICD-10-PCS; 2022-11-16)
PROC: 0BH17EZ Insertion of Endotracheal Airway into Trachea, Via Natural or Artificial Opening (ICD-10-PCS; 2022-11-16)
PROC: 0D9770Z Drainage of Stomach, Pylorus with Drainage Device, Via Natural or Artificial Opening (ICD-10-PCS; 2022-11-16)
DX: S06.5XAA Traumatic subdural hemorrhage with loss of consciousness status unknown, initial encounter (principal); G93.41 Metabolic encephalopathy; G93.5 Compression of brain; J96.01 Acute respiratory failure with hypoxia; N17.9 Acute kidney failure, unspecified; J98.11 Atelectasis; E87.0 Hyperosmolality and hypernatremia; E87.20 Acidosis, unspecified; I16.1 Hypertensive emergency; Z66 Do not resuscitate; Z51.5 Encounter for palliative care; E78.5 Hyperlipidemia, unspecified; W18.30XA Fall on same level, unspecified, initial encounter; Y92.019 Unspecified place in single-family (private) house as the place of occurrence of the external cause; I10 Essential (primary) hypertension; R40.2132 Coma scale, eyes open, to sound, at arrival to emergency department; R40.2212 Coma scale, best verbal response, none, at arrival to emergency department; R40.2362 Coma scale, best motor response, obeys commands, at arrival to emergency department; R06.1 Stridor; E87.8 Other disorders of electrolyte and fluid balance, not elsewhere classified; E87.6 Hypokalemia; E83.51 Hypocalcemia; Z88.1 Allergy status to other antibiotic agents; Z88.8 Allergy status to other drugs, medicaments and biological substances; Z91.040 Latex allergy status; Z79.82 Long term (current) use of aspirin; Z79.899 Other long term (current) drug therapy; Z85.43 Personal history of malignant neoplasm of ovary; Z90.710 Acquired absence of both cervix and uterus; Z98.890 Other specified postprocedural states; Z78.1 Physical restraint status
CPT/HCPCS: 31500; 36415; 36416; 36600; 51702; 70450; 70496; 70498; 71045; 72125; 74018; 74230; 80048; 80053; 80061; 80076; 81001; 81003; 82805; 83605; 83735; 84484; 85025; 85610; 85730; 86850; 86900; 86901; 87040; 93005; 93970; 94003; 94640; 94660; 96365; 96366; 96375; 96376; C1713; J0171; J0360; J0612; J0696; J1100; J1940; J1953; J2001; J2250; J2272; J2370; J2405; J2704; J3010; J3475; J3480; J3490; J7042; J7050; Q9967; S0028